=== PATIENT | female | born 1960 | race Asian ===

== ENCOUNTER 2018-09-02 16:44 | Inpatient (IN) | payer OTHER ==
[~2018-09-02] VITALS: Ht 152.4 cm; Wt 72.6 kg
[2018-09-02 16:51] VITALS: Ht 152.4 cm; Wt 72.6 kg
--- NOTE | 2018-09-02 16:53 | NUR ---
PT TO ROOM 11. EKG IN PROGRESS.
--- NOTE | 2018-09-02 17:05 | NUR ---
PT BIB FAMILY C/C CP N/V PER FAMILY STS STARTED VOMITING AFTER HER MEAL THEN EPIGASTRIC PAIN PLACE ON MONITOR AWAITING FOR DR NONI ALBERT
--- NOTE | 2018-09-02 17:37 | NUR ---
XRAY AT BEDSIDE
[2018-09-02 17:40] LABS: BASOPHIL % 0.2 % (0-2); PLATELET COUNT 208 x10^3mcL (130-400); RED CELL DISTRIBUTION WIDTH 12.7 % (11.5-14.5)
--- NOTE | 2018-09-02 17:45 | NUR ---
DR HERNANDEZ AT BEDSIDE TO [place]
[2018-09-02 17:46] LABS: CALCIUM 9.2 mg/dL (8.5-10.1); CARBON DIOXIDE 29.1 mmol/L (21-32); CHLORIDE SERUM 103 mmol/L (98-107); CREATININE SERUM 0.9 mg/dL (0.6-1.0); GFR1 > 60 mL/min; GLUCOSE SERUM 120 mg/dL (74-106); POTASSIUM SERUM 3.7 mmol/L (3.5-5.1); SODIUM SERUM 141 mmol/L (136-145)
[2018-09-02 17:51] LABS: ALBUMIN 3.7 g/dL (3.4-5.0); ALKALINE PHOSPHATASE 89 U/L (46-116); ALT/SGPT 32 U/L (14-59); AST/SGOT 19 U/L (15-37); BILIRUBIN TOTAL 0.32 mg/dL (0.20-1.00); TOTAL PROTEIN, SERUM 7.3 g/dL (6.4-8.2)
--- NOTE | 2018-09-02 18:12 | NUR ---
MEDICATED ORDERED US AT BEDSIDE
--- NOTE | 2018-09-02 18:27 | NUR ---
PLEASE ENTER FULL NAMES OF FINISHING TUNNEL OPERATOR/RN Patient data collected by (FINISHING TUNNEL OPERATOR): Eliot STEVENS FINISHING TUNNEL OPERATOR Assessment reviewed and completed by (RN): MEHRAN WEST RN
--- NOTE | 2018-09-02 19:02 | NUR ---
DR HERNANDEZ AT BEDSIDE TO GO OVER PLAN OF CARE
--- NOTE | 2018-09-02 19:10 | NUR ---
REPORT RECEIVED FROM LUDA IBANEZ I WILL BE RESUMING CARE OF PT AT THIS TIME
--- NOTE | 2018-09-02 19:15 | NUR ---
PT IN POSITION OF COMFORT RESPS E/U FAMILY AT BEDSIDE
[2018-09-02 20:26] LABS: microscopic required? NO
[2018-09-02 20:31] VITALS: BP 107/68
[2018-09-02 20:33] LABS: urine erythrocyte NEGATIVE (NEGATIVE)
[2018-09-02 20:34] LABS: CHOLESTEROL/HDL RATIO 3.7; MAGNESIUM 1.6 mg/dL (1.8-2.4); PHOSPHOROUS 3.3 mg/dL (2.5-4.9)
--- NOTE | 2018-09-02 21:08 | NUR ---
RECEIVED PT FROM ER. PT ADMIT FOR CHEST PAIN/ ABD PAIN, PT IS A/O X4, VERBAL RESPONSIVE, ABLE TO TELL WHAT SHE NEEDS. LUNG SOUND CLEAR BILATEARL, NO COUGH, NO SOB, PT IS ON TELE 10, NSR, DENY ANY CHEST PAIN OR DISCOMFORT, BOWEL SOUND PRESENT ALL 4 QUADRANTS, NO DISTENTION, NO TENDER. DENY ANY CHEST JOSEE OR DISCOMFORT, DENY N/V AT THIS TIME. PEDAL PULSE PRESENT BOTH FEET, NO EDEMA, IV AT LEFT HAND, NO LEAKING, NO INFILTRATION. ALL ADLS ASSIST, ALL NEED MET, CALL LIGHT IN REACH, WILL CONTINUE TO MONITOR.
--- NOTE | 2018-09-02 21:30 | NUR ---
DUE MEDICATION GIVEN ORDERED. STARTED ON IVF NS AT 100CC/HR VIA PERIPHERAL LINE AT THE LEFT HAND. IV ACCESS CLAR AND INTACT, NO REDNESS NOTED AT THE IV SITE.
--- NOTE | 2018-09-03 00:01 | NUR ---
ASLEEP BUT AROUSABLE. NO S/S OF CHEST PAIN/DISCOMFORT.CONTINUES ON SR SHOWN TELE #1O. CALL LIGHT WITHIN REACH. WILL CONTINUE TO MONITOR.
--- NOTE | 2018-09-03 02:50 | NUR ---
DR SANTOS WAS PAGED GATE FOR ME'S MGNESIUM LEVEL 1.6, AWAITNG FOR NEW ORDER.
[2018-09-03 05:14] VITALS: BP 106/63
--- NOTE | 2018-09-03 06:15 | NUR ---
MAGNESIUM LEVEL 1., DR BRYANT MADE AWARE WITH ORDER NOTED AND CARRIED OUT, PT TOLERATED WELL. KEPT CLEAN AND DRY. ALL NEEDS ATTENDED.
--- NOTE | 2018-09-03 07:15 | NUR ---
SEEN IN BED AAOX4. BREATHING E/U ON ROOM AIR. DENIES ABD PAIN/NAUSEA AT THIS TIME. KEPT NPO FOR POSSIBLE PROCEDURE. IVF NS TO LT HAND INFUSING AT 100ML/HR, IV SITE INTACT AND PATENT. PLAN OF CARE DISCUSSED. CALL LIGHT PLACED WITHIN EASY REACH. SIDERAILS UP X2.
--- NOTE | 2018-09-03 08:25 | NUR ---
SEEN BY DOCTOR CARTER AT BEDSIDE. PATIENT AND PATIENT'S DAUGHTER MADE AWARE OF CURRENT CONDITION AND PLAN OF CARE.
--- NOTE | 2018-09-03 09:09 | NUR ---
SCHEDULED AM MEDS GIVEN. ULTRASOUND ABDOMEN AT BEDSIDE.
[2018-09-03 10:27] LABS: BILIRUBIN DIRECT 0.15 mg/dL (0.0-0.2); BILIRUBIN TOTAL 0.6 mg/dL (0.20-1.00); TOTAL PROTEIN, SERUM 6.3 g/dL (6.4-8.2)
[2018-09-03 10:30] LABS: ALBUMIN 3.1 g/dL (3.4-5.0)
--- NOTE | 2018-09-03 10:52 | NUR ---
DOCTOR ARITA AND MEDICAL TEAM AT BEDSIDE FOR AM ROUND. PATIENT AND PATIENT'S DAUGHTER AT BEDSIDE MADE AWARE OF CURRENT CONDITION AND PLAN OF CARE.
[2018-09-03 14:39] VITALS: BP 114/70
--- NOTE | 2018-09-03 14:56 | NUR ---
DISCHARGE INSTRUCTION EXPLAINED AND GIVEN TO PATIENT AND PATIENT'S DAUGHTER. S/L REMOVED NO ERYTHEMA OR SWELLING TO SITE, CATHETER INTACT, DRSG APPLIED. TELEMETRY#10 CLEANED AND RETURNED TO AR. DENIES PAIN OR DISCOMFORT AT THIS TIME. BROUGHT VIA WHEELCHAIR BY [employer] ARTIST ACCOMPANIED BY FAMILY MEMBERS.
== END 2018-09-03 14:59 | disposition home or self-care (01) | DRG 446 ==
LOC: ED 16:44 → DU 19:40
PROVIDERS: Emergency Medicine; Internal Medicine Gastroenterology; ADMIT Family Medicine
DX: K80.50 Calculus of bile duct without cholangitis or cholecystitis without obstruction (principal); K21.9 Gastro-esophageal reflux disease without esophagitis
CPT/HCPCS: J1885; J2405; J3490; J7030; Q0092